=== PATIENT | male | born 1945 | race Caucasian/White ===

== ENCOUNTER → 2017-02-06 | Day surgery (SDC) | payer MEDICARE, OTHER ==
[~2017-02-06] MED LIST: COUMADIN5 MG PO; FLOMAX0.4 MG PO; IRON325 M1 PO; LOVENOX100 MG/1 M SQ; NEURONTIN100 MG PO; NORCO 5/3251 EACH PO; PREVACID30 MG PO; SYNTHROID100 MCG PO; ZESTORETIC 10-1 EACH PO; ZYRTEC10 MG PO
[2017-02-06 11:19] LABS: INR 2.06 (0.9-1.2); PROTHROMBIN TIME 22.6 SECONDS (11.7-14.0); PTT 36.5 SECONDS (23.2-31.4)
== END | disposition home or self-care (01) ==
LOC: FAS 10:09
PROVIDERS: Anesthesiology
DX: T81.31XA Disruption of external operation (surgical) wound, not elsewhere classified, initial encounter (principal); J44.9 Chronic obstructive pulmonary disease, unspecified; E03.9 Hypothyroidism, unspecified; M19.90 Unspecified osteoarthritis, unspecified site; G47.30 Sleep apnea, unspecified; I10 Essential (primary) hypertension; Z86.718 Personal history of other venous thrombosis and embolism; Z88.8 Allergy status to other drugs, medicaments and biological substances; Z79.01 Long term (current) use of anticoagulants; Z79.899 Other long term (current) drug therapy; Z79.891 Long term (current) use of opiate analgesic; Z96.659 Presence of unspecified artificial knee joint; Z98.890 Other specified postprocedural states; Z98.42 Cataract extraction status, left eye; Z98.41 Cataract extraction status, right eye; Z90.49 Acquired absence of other specified parts of digestive tract; Z90.89 Acquired absence of other organs; Y69 Unspecified misadventure during surgical and medical care
CPT/HCPCS: 36415; 85610; 85730; 87070; 87075; 87205; J0690; J2405; J2704; J3010

== ENCOUNTER 2017-03-26 17:16 | Emergency (ER) | payer OTHER, MEDICARE ==
[2017-03-26 18:15] LABS: BASOPHIL 0.3 % (0-2); HCT 39.9 % (42.0-52.0); LYMPHOCYTE 13.3 % (15-48); MCH 25.8 pg (25.0-31.0); MCHC 32.6 g/dL (32.0-36.0); MCV 79.2 fL (78.0-100.0); MONOCYTE 9.5 % (0-12); NEUTROPHIL 75.9 % (41-80); PLT 212 K/uL (150-400); RBC 5.04 M/uL (4.70-6.00); RDW 14.8 % (11.5-14.0); WBC 7.8 K/uL (4.0-10.5)
[2017-03-26 18:25] LABS: INR 1.57 (0.9-1.2); PROTHROMBIN TIME 18.3 SECONDS (11.7-14.0); PTT 30.3 SECONDS (23.2-31.4)
[2017-03-26 18:35] LABS: BILIRUBIN - TOTAL 0.7 mg/dL (0.1-1.0); CREATININE 1.1 mg/dL (0.7-1.2); GLOBULIN (CALCULATION) 2.9 g/dL (2.2-4.2); TOTAL PROTEIN 6.9 g/dL (6.4-8.3)
== END 2017-03-26 22:05 | disposition home or self-care (01) ==
LOC: FER 17:16
PROVIDERS: Internal Medicine
DX: S23.3XXA Sprain of ligaments of thoracic spine, initial encounter (principal); S33.5XXA Sprain of ligaments of lumbar spine, initial encounter; M54.2 Cervicalgia; E03.9 Hypothyroidism, unspecified; N40.0 Benign prostatic hyperplasia without lower urinary tract symptoms; Z86.718 Personal history of other venous thrombosis and embolism; Z88.8 Allergy status to other drugs, medicaments and biological substances; Z79.01 Long term (current) use of anticoagulants; Z79.899 Other long term (current) drug therapy; V59.9XXA Occupant (driver) (passenger) of pick-up truck or van injured in unspecified traffic accident, initial encounter; Y92.410 Unspecified street and highway as the place of occurrence of the external cause
CPT/HCPCS: 36415; 70450; 71020; 72110; 72125; 72128; 72170; 80053; 85025; 85610; 85730; J1170; J2270; J3360

== ENCOUNTER 2021-07-16 12:34 | Emergency (ER) | payer MEDICARE, OTHER ==
[2021-07-16] MEDS ORDERED: CYCLOBENZAPRINE10 MG PO (17:20)
== END 2021-07-16 15:25 | disposition home or self-care (01) ==
LOC: FER 12:34
DX: S01.01XA Laceration without foreign body of scalp, initial encounter (principal); W17.89XA Other fall from one level to another, initial encounter; Y92.812 Truck as the place of occurrence of the external cause
CPT/HCPCS: 70450; 72125; 72128; 72131